=== PATIENT | female | born 1975 | race Caucasian/White ===

== ENCOUNTER 2016-11-24 14:58 | Inpatient (IN) | payer OTHER ==
[~2016-11-24] VITALS: Ht 152.4 cm; Wt 52.5 kg
[~2016-11-24 14:58] MED LIST: ASPI81CH CHEW; ATOR40TA16 PO; CLOP75TA PO; DICY10CA12 PO; GABA600T PO; IRON28TA PO; LISI-519 PO; OLAN10TA PO; OMEP20TA PO; TRAM50TA PO
[2016-11-25] MEDS ORDERED: LACTATED RINGER'S 1000 ML IV SCH (11:00)
[2016-11-25] MEDS ORDERED: SODIUM CHLORID 0.9% 500 ML IV SCH (11:00)
[2016-11-25] MEDS ORDERED: METOPROLOL TARTRATE 25 MG TAB PO PRN (11:30)
[2016-11-25] MEDS ORDERED: INSULIN HUMAN REGULAR 1,000 UNITS/10 ML VIAL SQ PRN (11:30)
[2016-11-25 12:00] VITALS: BP 118/81; PULSE 92; RESP 18; TEMP 98.1; O2SAT 100
[2016-11-25] MEDS ORDERED: KETOROLAC TROMETHAMINE 60 MG/2 ML (IM) VIAL IM ONE (12:00)
[2016-11-25] MEDS ORDERED: ONDANSETRON HCL 4 MG/2 ML VIAL IV PUSH ONE (12:00)
[2016-11-25] MEDS ORDERED: PROPOFOL 200 MG/20 ML AMP IV ONE (12:00)
[2016-11-25] MEDS ORDERED: NEOSTIGMINE 3 MG/3 ML SYR IV ONE (12:00)
[2016-11-25] MEDS ORDERED: PHENYLEPH/NS 1000 MCG/10 ML SYR IV ONE (12:00)
[2016-11-25] MEDS ORDERED: NEOSTIGMINE METHYLSULFATE 10 MG/10 ML VIAL IV PUSH ONE (12:00)
[2016-11-25] MEDS ORDERED: MIDAZOLAM HCL 2 MG/2 ML VIAL ONE (13:13)
[2016-11-25] MEDS ORDERED: FAMOTIDINE 20 MG/2 ML VIAL ONE (13:13)
[2016-11-25] MEDS ORDERED: ceFAZolin INJ 1,000 MG VIAL IV ONE (13:25)
[2016-11-25] MEDS ORDERED: LIDOCAINE 1%/EPINEPHrine 1:100,000 SOLN 30 ML VIAL INFIL ONE (13:37)
[2016-11-25] MEDS ORDERED: DO NOT ADM ANY ANTICOAGULANT DRUGS XX PRN (14:22)
[2016-11-25] MEDS ORDERED: DICLOFENAC SODIUM 37.5 MG/ML VIAL IV PUSH ONE (14:34)
[2016-11-25] MEDS ORDERED: fentaNYL CITRATE 250 MCG/5 ML AMP ONE (15:03)
[2016-11-25] MEDS ORDERED: *RESP: ALBUTEROL 2.5 MG/3 ML NEB (PRN) PERIprocedural Use ONLY NEB ONE (15:25)
[2016-11-25 16:40] VITALS: BP 94/58; PULSE 77; RESP 16; TEMP 97.6; O2SAT 98
--- NOTE | 2016-11-27 11:56 | MP ---
cc: DANII CLEMENT,TAN MARSH,JUAN R INMAN MD, M.D. DATE OF SURGERY 11/25/2016 PREOPERATIVE DIAGNOSIS Multifocal vulvar and perineal high-grade dysplasia. POSTOPERATIVE DIAGNOSIS Multifocal vulvar and perineal high-grade dysplasia. PROCEDURE Modified radical vulvectomy (for wide local excisions with occupying significant portion of posterior vulva and perineum). SURGEON Julee Marsh MD [employer] [place] [employer] assistant ANESTHESIA General endotracheal anesthesia. ESTIMATED BLOOD LOSS 20 cc. HISTORY A 41-year-old female found on exam to have multiple raised pigmented lesions on the vulva and perineum. Biopsy showed carcinoma in situ. She was seen and counseled, considered the treatment options, was in favor of surgical resection. She was seen again in the preop holding area where the findings were again reviewed. Questions were answered and she understands and agreed to move forward with the surgery. FINDINGS The findings on exam under anesthesia are as described from our clinic note. Raised, pigmented lesions on the right posterior vulva, perineum, left medial and left lateral posterior vulva all in close proximity but best addressed surgically individually to help with primary reapproximation of tissue. Uncertainty regarding presence or absence of invasive disease, so that there was modified radical resection and with this some subcutaneous tissue and grossly negative margins. At the completion of the case, all grossly visible abnormalities on the external genitalia had been removed. There was good reapproximation of skin without undue tension and satisfactory cosmetic results. PROCEDURE The patient was taken to the operating room, placed in dorsal lithotomy position after general tracheal anesthesia was administered. A time-out was undertaken. The patient was identified by sight recognition and hospital ID bracelet and the proposed procedure was reviewed and confirmed. Exam under anesthesia was performed with the findings as described above, prepped, draped in sterile fashion. The surgical marker was used to outline each of the aforementioned areas with vertical or tangential elliptical shaped excisions on the right posterior vulva and on the left posterior medial and lateral vulva. The perineal resection was best removed and closed with a transverse elliptical excision. Lidocaine epinephrine was injected subcutaneously. Scalpel was used to remove elliptical excision of the skin, grossly negative margins and subcutaneous tissue from each of those specimens which were labeled as - 1. Right posterior vulva. 2. Left posterior medial vulva. 3. Left posterior lateral vulva. 4. Perineum. Each specimen was marked for orientation with a suture at the 12 o'clock position. Each of the defects were closed with interrupted 2-0 Vicryl deep sutures and in layers until the skin edges were in close proximity without tension and the skin and mucosal edges were reapproximated with interrupted 3-0 Vicryl sutures. Preliminary and final counts were correct, no remaining foreign objects in the vagina. She was returned to dorsal supine position and was pending reversal of anesthesia when I left the operating room to precede her to the Post-Anesthesia Care Unit. MD VERONICA Wilde/SSB /2:49 PM /11:28 AM
== END 2016-11-25 16:50 | disposition home or self-care (01) | DRG 747 ==
LOC: HSDI 11-25 11:02
PROVIDERS: ADMIT Obstetrics & Gynecology Gynecologic Oncology; ATTEND Obstetrics & Gynecology Gynecologic Oncology
PROC: 0HB9XZX Excision of Perineum Skin, External Approach, Diagnostic (ICD-10-PCS; 2016-11-25)
PROC: 0UBM0ZZ Excision of Vulva, Open Approach (ICD-10-PCS; principal; 2016-11-25 13:16)
DX: D07.1 Carcinoma in situ of vulva (principal); F17.210 Nicotine dependence, cigarettes, uncomplicated; I25.10 Atherosclerotic heart disease of native coronary artery without angina pectoris; M19.90 Unspecified osteoarthritis, unspecified site; I25.2 Old myocardial infarction; Z95.5 Presence of coronary angioplasty implant and graft; Z79.02 Long term (current) use of antithrombotics/antiplatelets
CPT/HCPCS: 86850; 86900; 86901; 88305; 94664; J0690; J1130; J1885; J2250; J2370; J2405; J2710; J3010; J7120; J7613